=== PATIENT | male | born 1950 | race Hispanic/Latino ===

== ENCOUNTER 2020-03-23 19:41 | Inpatient (IN) | payer MEDICARE, MEDICAID ==
[2020-03-24 03:22] VITALS: BMI 31.8
[2020-03-24] MEDS ORDERED: Non-Formulary Item 1 EACH (Albuterol Sulfate [Albuterol Sulfate Hfa] 8.5 GM Hfa.Aer.Ad) IH PRN (08:03)
[2020-03-24] MEDS ORDERED: Albuterol 200 PUFF (6.7GM INHALER) INH PRN (08:13)
[2020-03-24] MEDS ORDERED: FLU VACC QS2020-21(65YR UP)/PF 240 MCG/0.7 ML SYRINGE IM ONE (09:00)
[2020-03-24] MEDS: cefTRIAXone\\ROCEPHIN 2 GM in Sodium Chloride 0.9% 100 ML IVPB SCH (09:04)
[2020-03-24] MEDS: Enoxaparin Sodium 40 MG/0.4 ML SYRINGE SC SCH (09:06)
[2020-03-24] MEDS: Levothyroxine Sodium 100 MCG TAB PO SCH (09:06)
[2020-03-24] MEDS: Famotidine 20 MG TAB PO SCH ×2 (09:07→20:23)
[2020-03-24 09:18] LABS: ALT (SGPT) 22 U/L (8-55); AST (SGOT) 23 U/L (5-34); Albumin 2.8 g/dL (3.4-4.8); Alkaline Phosphatase 44 U/L (40-110); Anion Gap 14 mmol/L (10-20); BUN (Urea Nitrogen) 25 mg/dL (8.4-25.7); Bilirubin, Total 0.9 mg/dL (0.2-1.2); CK (CPK) 253 U/L (30-200); Calc. Creatinine Clearance 82 mL/min (70-130); Calcium 7.3 mg/dL (7.8-10.44); Carbon Dioxide 28 mmol/L (23-31); Chloride 105 mmol/L (98-107); Globulin 2.9 g/dL (2.4-3.5); Glucose 76 mg/dL (83-110); Potassium 3.9 mmol/L (3.5-5.1); Protein, Total 5.7 g/dL (5.8-8.1); Sodium 143 mmol/L (136-145)
[2020-03-24 09:34] LABS: Band 1 % (5-11); Burr Cells SLIGHT = 2-5 cells (100X) (0-1/hpf); Hemoglobin 15.3 g/dL (14.0-18.0); Lymphocytes 11 % (21-51); MDiff Complete? YES; Mean Corpuscular HGB CONC 32.6 g/dL (32.0-36.0); Mean Corpuscular Hemoglobin 30.5 pg (27.0-31.0); Mean Corpuscular Volume 93.6 fL (78.0-98.0); Mean Platelet Volume 7.4 fL (7.4-10.4); Monocytes 7 % (0-10); Neutrophil 80 % (42-75); Platelet Count 253 thou/uL (130-400); Platelet Morphology Comment Appears Adequate; Reactive Lymphocytes 1 % (0-10); Red Blood Cell (RBC) Count 5.02 mill/uL (4.70-6.10); Vacuoles SLIGHT; White Blood Cell (WBC) Count 12.1 thou/uL (4.8-10.8)
--- NOTE | 2020-03-24 17:05 | RAD ---
PORTABLE CHEST: 03/24/20 An AP portable film at 0827 is compared with a 03/17 exam. The infiltrate in the right upper lobe has gotten denser over time. Additionally, there is now inters titial prominence in the perihilar regions bilaterally and probably a little bit of infiltrate in the right lower lobe as well. There might be a small patch in the left lower lobe. These findings would suggest that the patient is experiencing worsening infection. COVID is certainly a likely etiology if he is COVID positive. IMPRESSION: Worsening of pulmonary infiltrates since 03/17. POS: HOME
[2020-03-24] MEDS: Simvastatin 40 MG TAB PO SCH (20:24)
[2020-03-24] MEDS: Mometasone/Formoterol 200/5 60 PUFF INH SCH (20:24)
[2020-03-24] MEDS ORDERED: SIMVASTATIN 20 MG PO SCH (21:00)
[2020-03-25 05:42] LABS: Hemoglobin 15.7 g/dL (14.0-18.0); Platelet Count 261 thou/uL (130-400)
[2020-03-25] MEDS: Mometasone/Formoterol 200/5 60 PUFF INH SCH ×2 (06:06→19:37)
[2020-03-25] MEDS ORDERED: Dexamethasone 4 MG TAB PO SCH (08:00)
[2020-03-25] MEDS: Levothyroxine Sodium 100 MCG TAB PO SCH (09:09)
[2020-03-25] MEDS: Famotidine 20 MG TAB PO SCH ×2 (09:09→21:23)
[2020-03-25] MEDS: Enoxaparin Sodium 40 MG/0.4 ML SYRINGE SC SCH (09:10)
[2020-03-25] MEDS: cefTRIAXone\\ROCEPHIN 2 GM in Sodium Chloride 0.9% 100 ML IVPB SCH (09:15)
[2020-03-25] MEDS: Simvastatin 40 MG TAB PO SCH (21:23)
[2020-03-26] MEDS: Mometasone/Formoterol 200/5 60 PUFF INH SCH ×2 (06:04→18:52)
[2020-03-26] MEDS: Famotidine 20 MG TAB PO SCH ×2 (09:31→21:18)
[2020-03-26] MEDS: Enoxaparin Sodium 40 MG/0.4 ML SYRINGE SC SCH (09:31)
[2020-03-26] MEDS: Levothyroxine Sodium 100 MCG TAB PO SCH (09:32)
[2020-03-26] MEDS: cefTRIAXone\\ROCEPHIN 2 GM in Sodium Chloride 0.9% 100 ML IVPB SCH (09:33)
--- NOTE | 2020-03-26 13:00 | RAD ---
PORTABLE CHEST: DATE: 03/26/2020. COMPARISON: Comparison is made with the 03/24/2020 study. This portable film at 0552 continues to show abundant bilateral parenchymal infiltrates; however, the y have improved some since the 03/24 study. Particularly those in the right upper lobe are definitely less dense than before. No large effusions are seen. The cardiac size is stable. IMPRESSION: Abundant infiltrates but slightly improved since 03/24. POS: HOME
[2020-03-26] MEDS: Simvastatin 40 MG TAB PO SCH (21:18)
[2020-03-27] MEDS: Mometasone/Formoterol 200/5 60 PUFF INH SCH ×2 (05:53→18:14)
[2020-03-27] MEDS: Levothyroxine Sodium 100 MCG TAB PO SCH (08:07)
[2020-03-27] MEDS: Enoxaparin Sodium 40 MG/0.4 ML SYRINGE SC SCH (08:07)
[2020-03-27] MEDS: Famotidine 20 MG TAB PO SCH ×2 (08:07→21:13)
[2020-03-27] MEDS: Acetaminophen 325 MG TAB PO PRN (18:13)
[2020-03-27] MEDS: Simvastatin 40 MG TAB PO SCH (21:13)
[2020-03-28 06:05] LABS: Platelet Count 240 thou/uL (130-400)
[2020-03-28] MEDS: Enoxaparin Sodium 40 MG/0.4 ML SYRINGE SC SCH (08:27)
[2020-03-28] MEDS: Mometasone/Formoterol 200/5 60 PUFF INH SCH ×2 (08:28→20:09)
[2020-03-28] MEDS: Levothyroxine Sodium 100 MCG TAB PO SCH (08:29)
[2020-03-28] MEDS: Famotidine 20 MG TAB PO SCH ×2 (08:29→20:08)
[2020-03-28] MEDS ORDERED: Simvastatin 40 MG TAB ONE (19:38)
[2020-03-28] MEDS ORDERED: Famotidine 20 MG TAB ONE (19:39)
[2020-03-28] MEDS: Simvastatin 40 MG TAB PO SCH (20:08)
[2020-03-29] MEDS: Mometasone/Formoterol 200/5 60 PUFF INH SCH ×2 (06:38→17:55)
[2020-03-29] MEDS: Levothyroxine Sodium 100 MCG TAB PO SCH (08:25)
[2020-03-29] MEDS: Famotidine 20 MG TAB PO SCH ×2 (08:25→20:07)
[2020-03-29] MEDS: Enoxaparin Sodium 40 MG/0.4 ML SYRINGE SC SCH (08:27)
[2020-03-29] MEDS: Simvastatin 40 MG TAB PO SCH (20:10)
[2020-03-30] MEDS: Mometasone/Formoterol 200/5 60 PUFF INH SCH ×2 (05:53→20:47)
[2020-03-30] MEDS: Famotidine 20 MG TAB PO SCH ×2 (09:20→20:47)
[2020-03-30] MEDS: Levothyroxine Sodium 100 MCG TAB PO SCH (09:21)
[2020-03-30] MEDS: Enoxaparin Sodium 40 MG/0.4 ML SYRINGE SC SCH (09:21)
[2020-03-30] MEDS: Simvastatin 40 MG TAB PO SCH (20:47)
[2020-03-31 05:50] LABS: Hemoglobin 15.2 g/dL (14.0-18.0); Platelet Count 183 thou/uL (130-400)
[2020-03-31] MEDS: Famotidine 20 MG TAB PO SCH ×2 (08:26→19:53)
[2020-03-31] MEDS: Enoxaparin Sodium 40 MG/0.4 ML SYRINGE SC SCH (08:26)
[2020-03-31] MEDS: Levothyroxine Sodium 100 MCG TAB PO SCH (08:26)
[2020-03-31] MEDS: Mometasone/Formoterol 200/5 60 PUFF INH SCH ×2 (08:27→19:54)
[2020-03-31] MEDS: Simvastatin 40 MG TAB PO SCH (19:53)
[2020-04-01] MEDS: Dexamethasone 4 MG TAB PO SCH (08:38)
[2020-04-01] MEDS: Levothyroxine Sodium 100 MCG TAB PO SCH (08:42)
[2020-04-01] MEDS: Enoxaparin Sodium 40 MG/0.4 ML SYRINGE SC SCH (08:42)
[2020-04-01] MEDS: Famotidine 20 MG TAB PO SCH ×2 (08:43→20:58)
[2020-04-01] MEDS: Mometasone/Formoterol 200/5 60 PUFF INH SCH ×2 (08:43→20:58)
[2020-04-01 19:11] LABS: Hemoglobin 14.3 g/dL (14.0-18.0); Platelet Count 166 thou/uL (130-400)
[2020-04-01] MEDS: Simvastatin 40 MG TAB PO SCH (20:57)
[2020-04-02] MEDS: Dexamethasone 4 MG TAB PO SCH (09:04)
[2020-04-02] MEDS: Levothyroxine Sodium 100 MCG TAB PO SCH (09:05)
[2020-04-02] MEDS: Mometasone/Formoterol 200/5 60 PUFF INH SCH ×2 (09:06→20:45)
[2020-04-02] MEDS: Enoxaparin Sodium 40 MG/0.4 ML SYRINGE SC SCH ×2 (09:06→20:44)
[2020-04-02] MEDS: Famotidine 20 MG TAB PO SCH ×2 (09:06→20:45)
--- NOTE | 2020-04-02 12:15 | PDOC.BPN ---
- Brief Progress Note Encounter Date: 04/02/20 Encounter Time: 12:13 Pt. is back on a ventimask today at 6 liters per minute. He is primarily a mouth breather, but mask compliance has been an issue. He desats with exertio nal activity when working with PT/OT. With deep breathing, his sats increase to 91-92%. He has a dry cough but doesn't cough anything up. He is not able to comply with ICS. He lives alone and family doesn't feel that he can manage oxygen at home by himself. He denies any new complaints. At the time of my exam, he has to urinate, but otherwise denies any n/v/d/abdominal/pain, chest pain. Selected Entries 04/02/20 04/02/20 04/02/20 08:00 09:06 09:50 Pain Score 0 Pulse Rhythm Irregular Respiratory Shallow Depth Respiratory Non-Labored Effort Pulse Rate 79 Respiratory 22 H Rate O2 Sat by Pulse 85 L Oximetry Oxygen Flow 6 Rate Oxygen Delivery Nasal Cannula Method Hospitalist ROS - Review of Systems Constitutional: denies: fever, chills, malaise ENT: denies: nose congestion Respiratory: reports: cough, dry, SOB with excertion. denies: shortness of breath, hemoptysis, sputum, wheezing Cardiovascular: denies: chest pain, edema Gastrointestinal: denies: nausea, vomiting, abdominal pain, diarrhea Genitourinary: denies: dysuria Skin: denies: rash Neurological: reports: weakness - Medication Medications: Active Medications Generic Name Dose Route Start Last Admin Trade Name Freq PRN Reason Stop Dose Admin Acetaminophen 650 mg 03/24/20 08:03 03/27/20 18:13 Acetaminophen 325 Mg Tab PO 650 mg Q4H PRN Administration Headache/Fever/Mild Pain (1-3) Albuterol Sulfate 2 puff 03/24/20 08:13 03/24/20 09:08 Albuterol 200 Puff (6.7gm Inhaler) INH 2 puff Q4H PRN Administration SOB Dexamethasone 6 mg 04/01/20 08:00 04/02/20 09:04 Dexamethasone 4 Mg Tab PO 6 mg QAM-WM GRUPO Administration Enoxaparin Sodium 40 mg 03/31/20 09:00 04/02/20 09:06 Enoxaparin Sodium 40 Mg/0.4 Ml Syringe SC 40 mg 0900 GRUPO Administration Famotidine 20 mg 03/24/20 09:00 04/02/20 09:06 Famotidine 20 Mg Tab PO 20 mg BID GRUPO Administration Levothyroxine Sodium 100 mcg 03/24/20 09:00 04/02/20 09:05 Levothyroxine Sodium 100 Mcg Tab PO 100 mcg DAILY GRUPO Administration Mometasone Furoate/Formoterol Fumar 2 puff 03/30/20 21:00 04/02/20 09:06 Mometasone/Formoterol 200/5 60 Puff INH 2 puff BID GRUPO Administration Simvastatin 40 mg 03/24/20 21:00 04/01/20 20:57 Simvastatin 40 Mg Tab PO 40 mg QPM GRUPO Administration - Exam General Appearance: NAD, awake alert Eye: anicteric sclera ENT: normocephalic atraumatic, moist mucosa Neck: supple, no JVD, no lymphadenopathy Heart: RRR, no murmur Respiratory: CTAB Respiratory - other findings: diminished air entry bilaterally Gastrointestinal: soft, non-tender, non-distended, normal bowel sounds, no guarding Extremities: no cyanosis, no clubbing, no edema Skin: normal turgor Neurological: cranial nerve grossly intact, no focal deficits Musculoskeletal: generalized weakness Psychiatric: A&O x 3 Hospitalist Results - Labs Result Diagrams: 04/01/20 19:05 04/01/20 19:05 Lab results: WBC 12.1 thou/uL (4.8-10.8) H 03/24/20 08:35 Hgb 14.3 g/dL (14.0-18.0) 04/01/20 19:05 Hct 46.3 % (42.0-52.0) 04/01/20 19:05 MCV 93.6 fL (78.0-98.0) 03/24/20 08:35 Plt Count 166 thou/uL (130-400) 04/01/20 19:05 Band Neuts % (Manual) 1 % (5-11) L 03/24/20 08:35 Sodium 143 mmol/L (136-145) 03/24/20 08:35 Potassium 3.9 mmol/L (3.5-5.1) 03/24/20 08:35 Chloride 105 mmol/L (98-107) 03/24/20 08:35 Carbon Dioxide 28 mmol/L (23-31) 03/24/20 08:35 BUN 25 mg/dL (8.4-25.7) 03/24/20 08:35 Creatinine 1.18 mg/dL (0.7-1.3) 04/01/20 19:05 Glucose 76 mg/dL (83-110) L 03/24/20 08:35 Calcium 7.3 mg/dL (7.8-10.44) L 03/24/20 08:35 Total Bilirubin 0.9 mg/dL (0.2-1.2) 03/24/20 08:35 AST 23 U/L (5-34) 03/24/20 08:35 ALT 22 U/L (8-55) 03/24/20 08:35 Alkaline Phosphatase 44 U/L (40-110) 03/24/20 08:35 Creatine Kinase 253 U/L (30-200) H 03/24/20 08:35 C-Reactive Protein 8.31 mg/dL (= or < 0.5) H 04/02/20 04:55 Serum Total Protein 5.7 g/dL (5.8-8.1) L 03/24/20 08:35 Albumin 2.8 g/dL (3.4-4.8) L 03/24/20 08:35 Additional comment: D-dimer and ferritin elevated. CRP is trending downward. Hospitalist H&P A/P - Problem (1) Pneumonia due to COVID-19 virus Code(s): U07.1 - COVID-19; J12.82 - PNEUMONIA DUE TO CORONAVIRUS DISEASE 2019 Status: Acute (2) COPD (chronic obstructive pulmonary disease) Status: Acute Qualifiers: COPD type: unspecified COPD Qualified Code(s): J44.9 - Chronic obstructive pulmonary disease, unspecified (3) Intellectual delay Code(s): F81.9 - DEVELOPMENTAL DISORDER OF SCHOLASTIC SKILLS, UNSPECIFIED Stat us: Acute (4) Hypertension Code(s): I10 - ESSENTIAL (PRIMARY) HYPERTENSION Status: Acute Qualifiers: Hypertension type: essential hypertension Qualified Code(s): I10 - Essential (primary) hypertension (5) Chronic kidney disease, stage 3a Code(s): N18.31 - CHRONIC KIDNEY DISEASE, STAGE 3A Status: Resolved (6) Hypothyroidism Code(s): E03.9 - HYPOTHYROIDISM, UNSPECIFIED Status: Chronic (7) Dyslipidemia Code(s): E78.5 - HYPERLIPIDEMIA, UNSPECIFIED Status: Chronic (8) DVT prophylaxis Code(s): Z29.9 - ENCOUNTER FOR PROPHYLACTIC MEASURES, UNSPECIFIED Status: Acute - Plan Plan: He has completed Rocephin and Zithromax for any bacterial superinfection present. He completed remdesivir prior to transfer her from [facility]. Pt. will be continued on ventimask with current O2 settings and parameters for now. Decadron will be given for a couple of more days given his continued hypoxia and high oxygen needs. CRP is improving. D dimer is elevated. Will increased DVT prophylaxis to lovenox 40 mg BID. Pt.'s blood pressure and renal function have remained normal off of his home MONIKA inhibitor/thiazide diuretic combo. Will plan for placement when O2 requirements are less.
[2020-04-02] MEDS: Simvastatin 40 MG TAB PO SCH (20:45)
[2020-04-03 05:29] LABS: Hemoglobin 14.6 g/dL (14.0-18.0); Platelet Count 158 thou/uL (130-400)
[2020-04-03] MEDS: Famotidine 20 MG TAB PO SCH ×2 (08:38→20:54)
[2020-04-03] MEDS: Enoxaparin Sodium 40 MG/0.4 ML SYRINGE SC SCH ×2 (08:38→20:54)
[2020-04-03] MEDS: Dexamethasone 4 MG TAB PO SCH (08:39)
[2020-04-03] MEDS: Levothyroxine Sodium 100 MCG TAB PO SCH (08:39)
[2020-04-03] MEDS: Mometasone/Formoterol 200/5 60 PUFF INH SCH ×2 (09:13→21:00)
[2020-04-03] MEDS ORDERED: Bisacodyl 5 MG TAB PO PRN (11:39)
[2020-04-03] MEDS: Simvastatin 40 MG TAB PO SCH (20:55)
[2020-04-04] MEDS: Levothyroxine Sodium 100 MCG TAB PO SCH (09:02)
[2020-04-04] MEDS: Polyethylene Glycol 3350 17 GM Packet PO SCH (09:02)
[2020-04-04] MEDS: Famotidine 20 MG TAB PO SCH ×2 (09:02→20:27)
[2020-04-04] MEDS: Enoxaparin Sodium 40 MG/0.4 ML SYRINGE SC SCH ×2 (09:03→20:28)
[2020-04-04] MEDS: Dexamethasone 4 MG TAB PO SCH (09:03)
[2020-04-04] MEDS: Mometasone/Formoterol 200/5 60 PUFF INH SCH ×2 (09:03→20:28)
[2020-04-04] MEDS: Simvastatin 40 MG TAB PO SCH (20:27)
[2020-04-04] MEDS: Acetaminophen 325 MG TAB PO PRN (20:27)
[2020-04-05] MEDS: Mometasone/Formoterol 200/5 60 PUFF INH SCH ×2 (01:26→08:42)
[2020-04-05 05:06] LABS: #Lymphocytes 1.5 thou/uL (1.20-3.40); #Monocytes 0.3 thou/uL (0.11-0.59); #Neutrophils 5.1 thou/uL (1.40-6.50); %Basophils 0.7 % (0.0-1.0); %Eosinophils 0.3 % (0.0-10.0); %Lymphocytes 21.6 % (21.0-51.0); %Monocytes 4.7 % (0.0-10.0); %Neutrophils 72.6 % (42.0-75.0); Hemoglobin 15.5 g/dL (14.0-18.0); Mean Corpuscular HGB CONC 30.7 g/dL (32.0-36.0); Mean Corpuscular Hemoglobin 29.7 pg (27.0-31.0); Mean Corpuscular Volume 96.5 fL (78.0-98.0); Mean Platelet Volume 7.4 fL (7.4-10.4); Platelet Count 144 thou/uL (130-400); RBC Distribution Width 13.8 % (11.5-14.5); Red Blood Cell (RBC) Count 5.21 mill/uL (4.70-6.10)
[2020-04-05 05:18] LABS: Anion Gap 16 mmol/L (10-20); BUN (Urea Nitrogen) 30 mg/dL (8.4-25.7); CRP (Inflammatory) 1.64 mg/dL (= or < 0.5); Calc. Creatinine Clearance 65 mL/min (70-130); Calcium 8.1 mg/dL (7.8-10.44); Carbon Dioxide 30 mmol/L (23-31); Chloride 98 mmol/L (98-107); Glucose 122 mg/dL (83-110); Potassium 4.7 mmol/L (3.5-5.1); Sodium 139 mmol/L (136-145)
[2020-04-05] MEDS: Famotidine 20 MG TAB PO SCH ×2 (08:39→20:52)
[2020-04-05] MEDS: Dexamethasone 4 MG TAB PO SCH (08:40)
[2020-04-05] MEDS: Polyethylene Glycol 3350 17 GM Packet PO SCH (08:40)
[2020-04-05] MEDS: Levothyroxine Sodium 100 MCG TAB PO SCH (08:40)
[2020-04-05] MEDS: Enoxaparin Sodium 40 MG/0.4 ML SYRINGE SC SCH ×2 (08:40→20:52)
[2020-04-05] MEDS: Simvastatin 40 MG TAB PO SCH (20:52)
[2020-04-05] MEDS: Acetaminophen 325 MG TAB PO PRN (20:53)
[2020-04-06 05:31] LABS: Hemoglobin 15.1 g/dL (14.0-18.0); Platelet Count 139 thou/uL (130-400)
[2020-04-06] MEDS: Levothyroxine Sodium 100 MCG TAB PO SCH (08:22)
[2020-04-06] MEDS: Enoxaparin Sodium 40 MG/0.4 ML SYRINGE SC SCH ×2 (08:22→20:38)
[2020-04-06] MEDS: Polyethylene Glycol 3350 17 GM Packet PO SCH (08:22)
[2020-04-06] MEDS: Dexamethasone 4 MG TAB PO SCH (08:22)
[2020-04-06] MEDS: Famotidine 20 MG TAB PO SCH ×2 (08:22→20:38)
[2020-04-06] MEDS: Mometasone/Formoterol 200/5 60 PUFF INH SCH ×2 (08:41→21:30)
[2020-04-06] MEDS: Simvastatin 40 MG TAB PO SCH (20:38)
[2020-04-06] MEDS: Acetaminophen 325 MG TAB PO PRN (20:38)
[2020-04-07] MEDS: Levothyroxine Sodium 100 MCG TAB PO SCH (09:03)
[2020-04-07] MEDS: Famotidine 20 MG TAB PO SCH ×2 (09:03→22:03)
[2020-04-07] MEDS: Mometasone/Formoterol 200/5 60 PUFF INH SCH ×2 (09:04→22:04)
[2020-04-07] MEDS: Polyethylene Glycol 3350 17 GM Packet PO SCH (09:04)
[2020-04-07] MEDS: Enoxaparin Sodium 40 MG/0.4 ML SYRINGE SC SCH ×2 (09:04→22:04)
[2020-04-07] MEDS: Simvastatin 40 MG TAB PO SCH (22:03)
[2020-04-08] MEDS: Mometasone/Formoterol 200/5 60 PUFF INH SCH ×2 (10:03→20:17)
[2020-04-08] MEDS: Levothyroxine Sodium 100 MCG TAB PO SCH (10:03)
[2020-04-08] MEDS: Famotidine 20 MG TAB PO SCH ×2 (10:03→20:17)
[2020-04-08] MEDS: Polyethylene Glycol 3350 17 GM Packet PO SCH (10:03)
[2020-04-08] MEDS: Enoxaparin Sodium 40 MG/0.4 ML SYRINGE SC SCH ×2 (10:03→20:09)
[2020-04-08] MEDS: Acetaminophen 325 MG TAB PO PRN (20:09)
[2020-04-08] MEDS: Simvastatin 40 MG TAB PO SCH (20:17)
[2020-04-09 05:24] LABS: Hemoglobin 16.1 g/dL (14.0-18.0); Platelet Count 171 thou/uL (130-400)
[2020-04-09] MEDS: Levothyroxine Sodium 100 MCG TAB PO SCH (09:40)
[2020-04-09] MEDS: Mometasone/Formoterol 200/5 60 PUFF INH SCH ×2 (09:41→20:09)
[2020-04-09] MEDS: Polyethylene Glycol 3350 17 GM Packet PO SCH (09:41)
[2020-04-09] MEDS: Famotidine 20 MG TAB PO SCH ×2 (09:41→20:08)
[2020-04-09] MEDS: Enoxaparin Sodium 40 MG/0.4 ML SYRINGE SC SCH ×2 (09:41→20:08)
--- NOTE | 2020-04-09 13:13 | PDOC.BPN ---
- Brief Progress Note Encounter Date: 04/09/20 Encounter Time: 13:10 Mr. Dumont has been stable on the floor. His O2 requirements have lessened to 2-3 LPM per nasal canula to maintain his sats 92%. He seems to go low at night. They were able to d/c the O2 completely during the day yesterday. He is unable to use the ICS appropriately. 04/06/2020 OT performed MMSE on patient. He scored 20/30 and passing is 20 and above. He will need help for bills and meds set up. The O2 line is a risk factor for falls, and he is unable to maneuver it on his own. He has been put on a sitting schedule to encourage activity. They recommended we continue therapy for another week, at which point, we may be able to wean him off of his oxygen. Both patient and nursing deny any new concerns. 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: Other (cognitive impairment (followed by [facility])) Gastrointestinal: reports: no pertinent history Heme/Onc: reports: no pertinent history Hepatobiliary: reports: no pertinent history Musculoskeletal: reports: no pertinent history Endocrine: reports: Hypothyroidism - Past Surgical History Past Surgical History: reports: Other (thyroidectomy) - Family History Family History: reports: no pertinent history Hospitalist ROS - Review of Systems Constitutional: denies: fever, chills, sweats, weakness, malaise Eyes: denies: vision change ENT: denies: nose congestion Respiratory: reports: cough, dry. denies: shortness of breath, hemoptysis, SOB with excertion Cardiovascular: denies: chest pain, palpitations Gastrointestinal: denies: nausea, vomiting, abdominal pain, diarrhea, constipation Skin: denies: rash Neurological: reports: confusion. denies: weakness - Medication Medications: Active Medications Generic Name Dose Route Start Last Admin Trade Name Freq PRN Reason Stop Dose Admin Acetaminophen 650 mg 03/24/20 08:03 04/08/20 20:09 Acetaminophen 325 Mg Tab PO 650 mg Q4H PRN Administration Headache/Fever/Mild Pain (1-3) Albuterol Sulfate 2 puff 03/24/20 08:13 03/24/20 09:08 Albuterol 200 Puff (6.7gm Inhaler) INH 2 puff Q4H PRN Administration SOB Bisacodyl 10 mg 04/03/20 11:39 04/03/20 17:40 Bisacodyl 5 Mg Tab PO 10 mg DAILYPRN PRN Administration Constipation Enoxaparin Sodium 40 mg 04/02/20 21:00 04/09/20 09:41 Enoxaparin Sodium 40 Mg/0.4 Ml Syringe SC 40 mg 0900,2100 GRUPO Administration Famotidine 20 mg 03/24/20 09:00 04/09/20 09:41 Famotidine 20 Mg Tab PO 20 mg BID GRUPO Administration Levothyroxine Sodium 100 mcg 03/24/20 09:00 04/09/20 09:40 Levothyroxine Sodium 100 Mcg Tab PO 100 mcg DAILY GRUPO Administration Mometasone Furoate/Formoterol Fumar 2 puff 03/30/20 21:00 04/09/20 09:41 Mometasone/Formoterol 200/5 60 Puff INH 2 puff BID GRUPO Administration Polyethylene Glycol 17 gm 04/04/20 09:00 04/09/20 09:41 Polyethylene Glycol 3350 17 Gm Packet PO 17 gm DAILY GRUPO Administration Simvastatin 40 mg 03/24/20 21:00 04/08/20 20:17 Simvastatin 40 Mg Tab PO 40 mg QPM GRUPO Administration Hospitalist Results - Labs Result Diagrams: 04/09/20 04:50 04/09/20 04:50 Lab results: WBC 7.0 thou/uL (4.8-10.8) 04/05/20 04:30 Hgb 16.1 g/dL (14.0-18.0) 04/09/20 04:50 Hct 50.6 % (42.0-52.0) 04/09/20 04:50 MCV 96.5 fL (78.0-98.0) 04/05/20 04:30 Plt Count 171 thou/uL (130-400) 04/09/20 04:50 Neutrophils % 72.6 % (42.0-75.0) 04/05/20 04:30 Band Neuts % (Manual) 1 % (5-11) L 03/24/20 08:35 Sodium 139 mmol/L (136-145) 04/05/20 04:30 Potassium 4.7 mmol/L (3.5-5.1) 04/05/20 04:30 Chloride 98 mmol/L (98-107) 04/05/20 04:30 Carbon Dioxide 30 mmol/L (23-31) 04/05/20 04:30 BUN 30 mg/dL (8.4-25.7) H 04/05/20 04:30 Creatinine 1.03 mg/dL (0.7-1.3) 04/09/20 04:50 Glucose 122 mg/dL (83-110) H 04/05/20 04:30 Calcium 8.1 mg/dL (7.8-10.44) 04/05/20 04:30 Total Bilirubin 0.9 mg/dL (0.2-1.2) 03/24/20 08:35 AST 23 U/L (5-34) 03/24/20 08:35 ALT 22 U/L (8-55) 03/24/20 08:35 Alkaline Phosphatase 44 U/L (40-110) 03/24/20 08:35 Creatine Kinase 253 U/L (30-200) H 03/24/20 08:35 C-Reactive Protein 1.64 mg/dL (= or < 0.5) H 04/05/20 04:30 Serum Total Protein 5.7 g/dL (5.8-8.1) L 03/24/20 08:35 Albumin 2.8 g/dL (3.4-4.8) L 03/24/20 08:35 Hospitalist H&P A/P - Problem (1) Pneumonia due to COVID-19 virus Code(s): U07.1 - COVID-19; J12.82 - PNEUMONIA DUE TO CORONAVIRUS DISEASE 2019 Status: Acute (2) COPD (chronic obstructive pulmonary disease) Status: Acute Qualifiers: COPD type: unspecified COPD Qualified Code(s): J44.9 - Chronic obstructive pulmonary disease, unspecified (3) Hypertension Code(s): I10 - ESSENTIAL (PRIMARY) HYPERTENSION Status: Acute Qualifiers: Hypertension type: essential hypertension Qualified Code(s): I10 - Essential (primary) hypertension (4) Intellectual delay Code(s): F81.9 - DEVELOPMENTAL DISORDER OF SCHOLASTIC SKILLS, UNSPECIFIED Status: Acute (5) Dyslipidemia Code(s): E78.5 - HYPERLIPIDEMIA, UNSPECIFIED Status: Chronic (6) Hypothyroidism Code(s): E03.9 - HYPOTHYROIDISM, UNSPECIFIED Status: Chronic Qualifiers: Hypothyroidism type: postoperative Qualified Code(s): E89.0 - Post procedural hypothyroidism (7) Chronic kidney disease, stage 3a Code(s): N18.31 - CHRONIC KIDNEY DISEASE, STAGE 3A Status: Inactive (8) DVT prophylaxis Code(s): Z29.9 - ENCOUNTER FOR PROPHYLACTIC MEASURES, UNSPECIFIED Status: Acute - Plan Plan: Continue supportive O2, PT/OT, droplet/airborne precautions. On lovenox 40 mg BID for DVT prophylaxis in the context of covid and decreased mobility. On famotidine for GI prophylaxis. Pt.'s blood pressure remains normal and renal function is improved off of his home MONIKA inhibitor/thiazide combo. Continue all other home medications. - Exam General Appearance: NAD, awake alert (up in chair eating lunch) Eye: PERRL, anicteric sclera ENT: normocephalic atraumatic, moist mucosa Neck: supple, no JVD, no lymphadenopathy Heart: RRR, no murmur Respiratory: rhonchi (fine right basilar crackles) Gastrointestinal: soft, non-tender, non-distended, normal bowel sounds, no palpable masses Extremities: no cyanosis, no clubbing, no edema Skin: normal turgor Neurological: cranial nerve grossly intact, no focal deficits Psychiatric: normal affect, A&O x 3
[2020-04-09] MEDS: Simvastatin 40 MG TAB PO SCH (20:11)
[2020-04-10] MEDS: Mometasone/Formoterol 200/5 60 PUFF INH SCH ×3 (10:03→21:05)
[2020-04-10] MEDS: Levothyroxine Sodium 100 MCG TAB PO SCH (10:04)
[2020-04-10] MEDS: Enoxaparin Sodium 40 MG/0.4 ML SYRINGE SC SCH ×2 (10:04→21:06)
[2020-04-10] MEDS: Famotidine 20 MG TAB PO SCH ×2 (10:04→21:05)
[2020-04-10] MEDS: Polyethylene Glycol 3350 17 GM Packet PO SCH (10:05)
[2020-04-10] MEDS: Simvastatin 40 MG TAB PO SCH (21:06)
[2020-04-11] MEDS: Mometasone/Formoterol 200/5 60 PUFF INH SCH (08:39)
[2020-04-11] MEDS: Enoxaparin Sodium 40 MG/0.4 ML SYRINGE SC SCH ×2 (08:41→20:13)
[2020-04-11] MEDS: Famotidine 20 MG TAB PO SCH ×2 (08:41→20:13)
[2020-04-11] MEDS: Levothyroxine Sodium 100 MCG TAB PO SCH (08:41)
[2020-04-11] MEDS: Polyethylene Glycol 3350 17 GM Packet PO SCH (08:41)
[2020-04-11] MEDS: Simvastatin 40 MG TAB PO SCH (20:13)
[2020-04-12 04:32] LABS: Hemoglobin 14.9 g/dL (14.0-18.0); Platelet Count 198 thou/uL (130-400)
[2020-04-12] MEDS: Levothyroxine Sodium 100 MCG TAB PO SCH (08:17)
[2020-04-12] MEDS: Famotidine 20 MG TAB PO SCH ×2 (08:17→21:30)
[2020-04-12] MEDS: Polyethylene Glycol 3350 17 GM Packet PO SCH (08:17)
[2020-04-12] MEDS: Mometasone/Formoterol 200/5 60 PUFF INH SCH ×2 (08:19→21:31)
[2020-04-12] MEDS: Enoxaparin Sodium 40 MG/0.4 ML SYRINGE SC SCH ×2 (11:55→21:30)
[2020-04-12] MEDS: Simvastatin 40 MG TAB PO SCH (21:30)
[2020-04-12] MEDS: Acetaminophen 325 MG TAB PO PRN (21:30)
[2020-04-13] MEDS ORDERED: Levothyroxine Sodium 100 MCG TAB PO SCH (06:00)
[2020-04-13 06:23] VITALS: TEMP 97.6
[2020-04-13] MEDS: Mometasone/Formoterol 200/5 60 PUFF INH SCH (08:03)
[2020-04-13] MEDS: Polyethylene Glycol 3350 17 GM Packet PO SCH (08:03)
[2020-04-13] MEDS: Famotidine 20 MG TAB PO SCH (08:04)
[2020-04-13] MEDS: Enoxaparin Sodium 40 MG/0.4 ML SYRINGE SC SCH (08:04)
--- NOTE | 2020-04-13 12:11 | PDOC.DS.DS ---
Provider Date of Admission: 03/24/20 01:20 Date of Discharge: 04/13/20 Admitting Provider: Lilia Ramos MD Primary Care Physician: Lilia Ramos MD Course Hospital Course: Mr. Dumont presented to us for chcf and rehabilitation following a hospitalization at [facility] for covid pneumonia and bacterial pneumonia on a background of COPD, possible idiopathic pulmonary fibrosis, hyperlipidemia, and intellectual deficits. 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 He has siblings in [place] and [place]. He presented with a high O2 need, titrating up to 6 liters via ventimask. He had completed IV remdesivir prior to his hospitalization, and we continued dexamethasone for a 10 day course total. In addition, for bacterial pneumonia, the patient was continued on a full course of ceftriaxone and azithromycin. We did perform repeat CXR that showed persistent infiltrates that would be consistent with covid pneumonia. PT/OT evaluated and treated the patient. He was reluctant to become active. He cannot perform incentive spirometry effectively. We were able to wean him to room air during the day, but he would still mouth breath and require O2 support at night during his stay. It is suspected that he likely has ERNESTINA and will need a workup for that as an outpatient. At the end of his stay, he is currently maintaining his O2 sats of 88-93% on 2-3 LPM via nasal canula. His O2 sats actually increase with exertion. Family and staff didn't feel that he would be able to maneuver the O2 tubing on his own independently. An MMSE was performed by OT, and patient sc ored 20/30 which means that he is able to make decisions for himself. He decided to finish out his chcf course at [facility] in [place], [place]. The goal is for him to be able to get off O2 completely as his covid sequalae improve. At the time of his discharge, he denies any shortness of breath, has minimal cough, and denies chest pain. Pertinent Studies: CXR 04/03/20 and 04/05/20 show diffuse infiltrates. CRP was monitored throughout his stay and decreased with each evaluation. His ferritin decreased during his course. His d dimer was elevated without evidence of PE, and his lovenox was increased to BID for prophylaxis following covid infection. This can be lowered as his activity improves. Resuscitation Status: 03/23/20 22:51 Resuscitation Status Routine Resuscitation Status: FULL: Full Resuscitation Lab Results: 04/12/20 04:13 04/12/20 04:13 Vitals: Vital Signs (12 hours) Temp Pulse Resp BP Pulse Ox 04/13/20 09:05 96 04/13/20 06:21 97.6 F 74 20 116/58 L 93 L Weight Admit Weight 180 lb Weight 180 lb Physical Exam: The patient was seen and examined on the day of discharge. General Appearance: NAD, awake alert Eye: PERRL, anicteric sclera ENT: normocephalic atraumatic, moist mucosa Neck: supple, no lymphadenopathy, no carotid bruit Respiratory: normal chest expansion, no tachypnea, rhonchi (fine crackles at right base) Cardiovascular: RRR, no murmur, no gallops, no rubs Gastrointestinal: soft, non-tender, non-distended, normal bowel sounds, no palpable masses, no guarding, no rigidity Extremities: no cyanosis, no clubbing, no edema Skin: normal turgor, no lesions, no rashes Neurological: cranial nerve grossly intact, no focal deficits Musculoskeletal: normal strength, no muscle wasting PSYCH: normal affect, A&O x 3 (unable to provide an adequate history or description of events; however, he knows who he is, where he is, and what we are doing in the moment. However, he is easily distracted and perseverates on certain ideas.) Problem (1) Pneumonia due to COVID-19 virus Code(s): U07.1 - COVID-19; J12.82 - PNEUMONIA DUE TO CORONAVIRUS DISEASE 2019 Status: Acute Plan: Pt. has completed remdesivir and decadron. He was unable to consent for convalescent plasma. His O2 needs continue to decrease slowly. Due to persistent symptoms of cough and hypoxia, he should still be placed in contact and droplet isolation. (2) COPD (chronic obstructive pulmonary disease) Status: Chronic Qualifiers: COPD type: unspecified COPD Qualified Code(s): J44.9 - Chronic obstructive pulmonary disease, unspecified (3) Hypertension Code(s): I10 - ESSENTIAL (PRIMARY) HYPERTENSION Status: Chronic Qualifiers: Hypertension type: essential hypertension Qualified Code(s): I10 - Essential (primary) hypertension Plan: The patient's blood pressure has remained controlled throughout his entire stay, and he was able to remain off of his previous home MONIKA Inhibitor/thiazide combination. 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 He scored 20/30 on MMSE so can make his own decisions but will need help with bills and medication administration. (5) Dyslipidemia Code(s): E78.5 - HYPERLIPIDEMIA, UNSPECIFIED Status: Chronic Plan: The patient will be continued on his statin therapy. (6) Hypothyroidism Code(s): E03.9 - HYPOTHYROIDISM, UNSPECIFIED Status: Chronic Qualifiers: Hypothyroidism type: postoperative Qualified Code(s): E89.0 - Postprocedural hypothyroidism Plan: His levothyroxine has been continued. (7) Chronic kidney disease, stage 3a Code(s): N18.31 - CHRONIC KIDNEY DISEASE, STAGE 3A Status: Inactive Plan: After his home blood pressure medication was discontinued, his renal function has actually improved overall to stage II. (8) DVT prophylaxis Code(s): Z29.9 - ENCOUNTER FOR PROPHYLACTIC MEASURES, UNSPECIFIED Status: Acute Plan: Still on lovenox BID for prophylaxis due to an elevated d dimer and decreased motivation to perform activity. This can be discontinued as situation evolves. Plan Home Medications: Medication Instructions Recorded Confirmed Type Levothyroxine Sodium [Synthroid] 100 mcg PO DAILY 02/10/13 03/23/20 History Simvastatin 40 mg PO QPM 02/10/13 03/23/20 History Albuterol Sulfate [Albuterol 2 inh IH Q4HR PRN 03/18/20 03/23/20 History Sulfate Hfa] Acetaminophen [Tylenol Regular 650 mg PO Q4H PRN tab 03/23/20 03/23/20 Rx Strength] Mometasone/Formoterol 200/5 2 puff INH BID-RT inh 03/23/20 03/23/20 Rx [Dulera 200 Mcg/5 Mcg Inhaler] Bisacodyl [Dulcolax] 10 mg PO DAILYPRN PRN tab 04/13/20 Rx Enoxaparin Sodium [Lovenox] 40 mg SC 0900,2100 syringe 04/13/20 Rx Famotidine [Pepcid] 20 mg PO BID tab 04/13/20 Rx Polyethylene Glycol 3350 [Miralax] 17 gm PO DAILY pk 04/13/20 Rx Allergies: No Known Allergies Allergy (Verified 03/23/20 23:04) Discharge Instructions:: Consider outpatient evaluation to rule out ERNESTINA and for pulmonary rehabilitation. Referrals: Alec Sloan MD [MD Not on Staff] - 3 Days Disposition: NURSING HOME FACILITY Quality CORE MEASURES:: PNE
[2020-04-13 13:02] VITALS: BP 130/68
== END 2020-04-13 13:10 | disposition short-term general hospital (02) | DRG 177 ==
LOC: BURMED 03-24 01:20 → UNDOADMIN 03-24 01:20
PROVIDERS: ADMIT Family Medicine; ATTEND Family Medicine
DX: U07.1 COVID-19 (principal); J12.82 Pneumonia due to coronavirus disease 2019; J15.9 Unspecified bacterial pneumonia; J44.0 Chronic obstructive pulmonary disease with (acute) lower respiratory infection; I12.9 Hypertensive chronic kidney disease with stage 1 through stage 4 chronic kidney disease, or unspecified chronic kidney disease; E78.5 Hyperlipidemia, unspecified; F81.9 Developmental disorder of scholastic skills, unspecified; N18.30 Chronic kidney disease, stage 3 unspecified; E89.0 Postprocedural hypothyroidism; G47.33 Obstructive sleep apnea (adult) (pediatric); E66.9 Obesity, unspecified; D69.6 Thrombocytopenia, unspecified; Z79.890 Hormone replacement therapy; Z79.899 Other long term (current) drug therapy; Z79.51 Long term (current) use of inhaled steroids; Z68.31 Body mass index [BMI] 31.0-31.9, adult
CPT/HCPCS: 36415; 71045; 80048; 80053; 82550; 82565; 82728; 84443; 85014; 85018; 85025; 85049; 85379; 86140; 94664; J0696; J1650; J3490; J8540